=== PATIENT | male | born 1975 | race Caucasian/White ===

== ENCOUNTER 2024-11-14 11:08 | Outpatient (CLI) | payer OTHER, SELFPAY ==
--- NOTE | 2024-11-14 | EST_ITS ---
Patient Info Name: Erick Glaser Age: 49 years : 1975 Gender: Male Ht: 73 in Wt: 205 lbs BSA: 2.20 m2 Exam Date: 11/14/2024 11:26 AM Exam Location: Echo Lab Patient Status: Outpatient Admit Date: 11/14/2024 Staff Ordering Physician: Aguilar, Celso PEDROZA Attending Provider: Aguilar, Celso PEDROZA Exercise Technologist: Lucia Shook RDCS Nurse: Ana Rosa Foster APN Exam Type: CA stress test treadmill Study Info Indications R07.9 - Chest pain, unspecified A treadmill exercise stress test was performed. Summary 1. Exercise capacity very good at >10 METS. 2. No abnormal ST-T wave changes with exercise. 3. Please correlate with nuclear medicine images, reported separately. Protocol: Anthony Stress ECG Details Stage: REST Duration (min): 1 min : 14 sec Speed (mph): 0.0 Grade (%): 0 HR (bpm): 68 SBP (mmHg): 134 DBP (mmHg): 73 METS: --- Stage: REST Duration (min): 7 min : 48 sec Speed (mph): 0.0 Grade (%): 0 HR (bpm): 70 SBP (mmHg): 134 DBP (mmHg): 73 METS: --- Stage: STAGE 1 Duration (min): 1 min : 0 sec Speed (mph): 1.7 Grade (%): 10 HR (bpm): 95 SBP (mmHg): 134 DBP (mmHg): 73 METS: --- Stage: STAGE 1 Duration (min): 2 min : 0 sec Speed (mph): 1.7 Grade (%): 10 HR (bpm): 104 SBP (mmHg): 134 DBP (mmHg): 73 METS: --- Stage: STAGE 1 Duration (min): 3 min : 0 sec Speed (mph): 1.7 Grade (%): 10 HR (bpm): 98 SBP (mmHg): 162 DBP (mmHg): 70 METS: --- Stage: STAGE 2 Duration (min): 1 min : 0 sec Speed (mph): 2.5 Grade (%): 12 HR (bpm): 106 SBP (mmHg): 162 DBP (mmHg): 70 METS: --- Stage: STAGE 2 Duration (min): 2 min : 0 sec Speed (mph): 2.5 Grade (%): 12 HR (bpm): 113 SBP (mmHg): 166 DBP (mmHg): 71 METS: --- Stage: STAGE 2 Duration (min): 3 min : 0 sec Speed (mph): 2.5 Grade (%): 12 HR (bpm): 110 SBP (mmHg): 166 DBP (mmHg): 71 METS: --- Stage: STAGE 3 Duration (min): 1 min : 0 sec Speed (mph): 3.4 Grade (%): 14 HR (bpm): 127 SBP (mmHg): 174 DBP (mmHg): 76 METS: --- Stage: STAGE 3 Duration (min): 2 min : 0 sec Speed (mph): 3.4 Grade (%): 14 HR (bpm): 134 SBP (mmHg): 174 DBP (mmHg): 76 METS: --- Stage: STAGE 3 Duration (min): 3 min : 0 sec Speed (mph): 3.4 Grade (%): 14 HR (bpm): 134 SBP (mmHg): 190 DBP (mmHg): 78 METS: --- Stage: STAGE 4 Duration (min): 1 min : 0 sec Speed (mph): 4.2 Grade (%): 16 HR (bpm): 149 SBP (mmHg): 190 DBP (mmHg): 78 METS: --- Stage: STAGE 4 Duration (min): 1 min : 4 sec Speed (mph): 4.2 Grade (%): 16 HR (bpm): 150 SBP (mmHg): 190 DBP (mmHg): 78 METS: --- Stage: RECOVERY Duration (min): 0 min : 55 sec Speed (mph): 0.0 Grade (%): 0 HR (bpm): 122 SBP (mmHg): 179 DBP (mmHg): 83 METS: --- Stage: RECOVERY Duration (min): 1 min : 55 sec Speed (mph): 0.0 Grade (%): 0 HR (bpm): 103 SBP (mmHg): 179 DBP (mmHg): 83 METS: --- Stage: RECOVERY Duration (min): 2 min : 55 sec Speed (mph): 0.0 Grade (%): 0 HR (bpm): 94 SBP (mmHg): 171 DBP (mmHg): 98 METS: --- Stage: RECOVERY Duration (min): 3 min : 55 sec Speed (mph): 0.0 Grade (%): 0 HR (bpm): 88 SBP (mmHg): 171 DBP (mmHg): 98 METS: --- Stage: RECOVERY Duration (min): 4 min : 29 sec Speed (mph): 0.0 Grade (%): 0 HR (bpm): 86 SBP (mmHg): 171 DBP (mmHg): 98 METS: --- Rest HR: 70 bpm Peak HR: 150 bpm Rest Sys BP: 134 mmHg Peak Sys BP: 190 mmHg Max Pred HR: 173 bpm % Max Pred HR: 87 % Target HR: 147 bpm Max RPP: 28,500 bpm*mmHg Main Score: [address] Seg Deviation: 1.00 mm Total Time: 10 min : 4 sec Rest Bentley BP: 73 mmHg Peak Bentley BP: 78 mmHg Angina Score: None Total METS: 12.1 Resting ECG Sinus rhythm with a ventricular rate of 67 beats per minute. No ischemic ST T wave changes. Stress ECG No abnormal ST/T wave changes with exercise. Arrhythmias None. Report Signatures
--- OUTSIDE RECORDS SUMMARY | 2024-11-14 12:43 | XMS_ITS | Clinical Summary ---
Author Organization [facility] Address [address] [place] [address] Care Team Providers Care Quality Control Tech Name Role Phone Unavailable Primary Care Provider Unavailabl e Allergies No known active allergies Medications No known medications Social History Tobacco Use Types Packs/Day Years Used Date Smoking Tobacco: Never Assessed Sex and Gender Information Value Date Recorded Sex Assigned at Not on file Legal Sex Male 9:58 PM CDT Gender Identity Not on file Sexual Orientation Not on file Plan of Treatment Health Maintenance Due Date Last Done Comments DTAP/TDAP/TD VACCINES (1 - Tdap) 1996 HEPATITIS B VACCINES (1 of 3 - 19+ 3-dose series) 08/24 COLORECTAL SCREENING 2022 Colorectal Cancer Screening 2022 FIT-DNA Q 3 years 2022 FIT/FOBT Q 1 year 2022 Flex Sig/CT Colonography Q 5 years 2022 INFLUENZA VACCINE (#1) 2024
--- OUTSIDE RECORDS SUMMARY | 2024-11-14 12:43 | XMS_ITS | Clinical Summary ---
Author Organization [facility] Address [facility] [place] [address] Care Team Providers Care Cognos Report Developer Name Role Phone Marques German MD Primary Care Provider [phone] Allergies No known active allergies Medications valsartan 320 MG tablet Take 320 mg by mouth daily. Active valsartan-hydroC HLOROthiazide 160-25 MG tabletIndication s:Essential hypertension,Marily ual physical exam Take 1 tablet by mouth daily. 30 tablet 11/02/2020 Active Active Problems Problem Noted Date Diagnosed Date Essential hypertension 06/27/2019 Resolved Problems Problem Noted Date Diagnosed Date Resolved Date Annual physical exam 06/27/2019 020 Immunizations Immunization Administration Dates Next Due Hepatitis A (Generic) 04/11/2018 Family History Medical History Relation Comments Heart Disease Father Hypertension Father Heart Disease Mother Relation Status Comments Father Mother Social History Tobacco Use Types Packs/Day Years Used Date Smoking Tobacco: Former Cigarettes Q uit: 06/27/2012 Smokeless Tobacco: Never PHQ-2 Answer Date Recorded PHQ-2 Score 2 06/27/2019 Sex and Gender Information Value Date Recorded Sex Assigned at Not on file 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 Gender Identity Not on file Sexual Orientation Not on file Last Filed Vital Signs Vital Sign Reading Time Taken Comments Blood Pressure 138/84 06/27/2019 2:07 PM GUN WELDER Pulse 72 06/27/2019 2:07 PM GUN WELDER Temperature - - Respiratory Rate - - Oxygen Saturation 98% 06/27/2019 2:07 PM GUN WELDER Inhaled Oxygen Concentration - - Weight 100.7 kg (222 lb) 06/27/2019 2:07 PM GUN WELDER Height 185.4 cm (6' 1 ) 06/27/2019 2:07 PM GUN WELDER Body Mass Index 29.29 06/27/2019 2:07 PM GUN WELDER Plan of Treatment Health Maintenance Due Date Last Done Comments Colorectal Cancer Screening Colonoscopy (10 Years) 1975 DTaP, Tdap and Td Vaccines ( 1 - Tdap) 1996 Hepatitis B Vaccines (1 of 3 - 19+ 3-dose series) 1996 Annual Physical 06/27/2020 06/27/2019 COVID-19 Vaccine (1 - 2023-2 5 season) 2024 Hepatitis C Completed 06/27/2019 Meningococcal B Vaccine Aged Out No l onger eligible based on patient's age to complete this topic Meningococcal Vaccine Aged Out No roxane mariam eligible based on patient's age to complete this topic Pneumococcal Vaccine: Pediat rics (0 to 5 Years) and At-Risk Patients (6 to 49 Years) Aged Out No longer eligi ble based on patient's age to complete this topic RSV Immunizations Under 20 Months Aged Out No longer eligible based on patient's age to complete this topic Procedures Procedure Name Priority Date/Time Associated Diagnosis Comments HEPATITIS A,B,& C Routine 06/27/2019 6:0 0 PM GUN WELDER Essential hypertension Annual physical exam from Last 3 Months or Most Recently Relevant to Health Maintenance Results * HEPATITIS A,B,& C (06/27/2019 6:00 PM GUN WELDER) HEPATITIS B SURFACE AG NON-REACTI VE NON-REACTI VE 06/27/2019 9:40 PM GUN WELDER [facility] HEP B CORE TOTAL AB NON-REACTI VE NON-REACTI VE 06/27/2019 9:41 PM [facility] HEP B SURFACE AB NON-REACTI VE 06/28/2019 7:22 AM [facility] HAV IGM NON-REACTI VE NON-REACTI VE 06/27/2019 9:41 PM GUN WELDER [facility] HEPATITIS C AB NON-REACTI VE NON-REACTI VE 06/27/2019 9:41 PM [facility] 06/27/2019 6:00 PM GUN WELDER Marques German MD LABORATORY Final Result [facility] [address] [place] [address], [place] [phone] from Last 3 Months or Most Recently Relevant to Health Maintenance [place] [address] [address] [place] [address] Care Teams Cognos Report Developer Relationship Specialty Start Date End Date Marques German MD [address] [address] PCP - General FAMILY PRACTICE 06/14/19
--- OUTSIDE RECORDS SUMMARY | 2024-11-14 12:43 | XMS_ITS | CONTINUITY OF CARE DOCUMENT ---
Author Name abby mora Address Unknown Organization [facility] Address [address] [place] [address] [address] [place] [address] Phone [phone] Care Team Providers Care Plumbing Mechanic Name Role Phone Maggie PEDROZA, Claude Unavailable [phone] JORGE CASILLAS MD Unavailable [phone] JORGE CASILLAS MD Unavailable [phone] PROBLEMS Condition Status Date Provider Notes Palpitations active Nivia Jimenez INSURANCE PROVIDERS Payer name Policy type / Coverage type [place] red democrat ID [facility] [id number] HISTORY OF PROCEDURES Procedure Date Procedure Name Provider Procedure Notes S tatus Delfin, 24 or 48 Marcelo Capone MD co mpleted
== END 2024-11-14 11:09 | disposition home or self-care (01) ==
PROVIDERS: PCP Internal Medicine; Visit Provider Internal Medicine
DX: R07.9 Chest pain, unspecified (principal)
CPT/HCPCS: 93017